=== PATIENT | male | born 1980 | race Caucasian/White ===

== ENCOUNTER 2018-07-30 04:40 | Inpatient (IN) ==
[2018-07-22 17:03] LABS: Appearance,Urine CLEAR; Bacteria,Urine 0 /hpf (0); Bilirubin,Urine NEG (NEG); Color,Urine YELLOW; Glucose,Urine (UA) NEGATIVE (NEG); Leukocyte Esterase,Urine NEG /uL (NEG); Mucus,Urine FEW /hpf (0); Protein,Urine NEG (NEG); Specific Gravity,Urine 1.017 (1.000-1.035); Urine Blood 0.2 mg/dL (<0.03); Urine RBC 1 /hpf (0-1); Urine Squamous Epithelial Cell < 1 /hpf (0-4); Urine WBC 1 /hpf (0-4); Urobilinogen,Urine NEG (NEG)
[2018-07-22 17:51] LABS: Blood Urea Nitrogen 9 mg/dl (6-20)
[2018-07-22 17:54] LABS: Basophils # (Auto) 0 K/mcL (0.0-0.3); Basophils % (Auto) 0.5 % (0.0-2.0); Eosinophils # (Auto) 0.2 K/mcL (0.0-0.7); Eosinophils % (Auto) 3.3 % (0.0-7.0); Granulocytes % (Auto) 60.3 % (38.0-78.0); Lymphocytes % (Auto) 29.1 % (15.5-49.0); Mean Cell Volume 86.5 fL (80.0-100.0); Mean Corpuscular HGB Conc 32.2 g/dL (31.0-36.0); Monocytes # (Auto) 0.5 K/mcL (0.1-0.9); Monocytes % (Auto) 6.8 % (1.0-12.0); Platelet Count 232 K/mcL (140-440); RBC 5.63 M/mcL (4.50-5.90); Red Cell Distribution Width 13.9 % (11.5-14.5)
[2018-07-30] MEDS ORDERED: ceFAZolin 2 GM in DEXTROSE 5% IN WATER 50 ML IV SCH (07:00)
[2018-07-30] MEDS ORDERED: 0.9 % SODIUM CHLORIDE 9 ML, KETOROLAC 30 MG, ROPIVACAINE HCL/PF 49.5 ML, EPINEPHrine 0.... IJ SCH (07:00)
[2018-07-30] MEDS ORDERED: GENTAMICIN SULFATE 800 MG/20 ML VIAL IR ONE (07:01)
[2018-07-30] MEDS ORDERED: fentaNYL 100 MCG/2 ML VIAL IV ONE (07:30)
[2018-07-30] MEDS ORDERED: PROPOFOL 200 MG/20 ML VIAL IV ONE (07:30)
[2018-07-30] MEDS ORDERED: ONDANSETRON 4 MG/2 ML VIAL ONE (07:30)
[2018-07-30] MEDS ORDERED: KETOROLAC 30 MG/ML VIAL ONE (07:30)
[2018-07-30] MEDS ORDERED: DEXAMETHASONE 4 MG/ML VIAL ONE (07:30)
[2018-07-30] MEDS ORDERED: LIDOCAINE HCL/PF 100 MG/5 ML SYRINGE IV ONE (07:30)
[2018-07-30] MEDS ORDERED: MEPERIDINE 25 MG/ML SYRINGE IV PRN (09:27)
[2018-07-30] MEDS ORDERED: KETOROLAC 30 MG/ML VIAL IV PRN (09:27)
[2018-07-30] MEDS ORDERED: ONDANSETRON 4 MG/2 ML VIAL IV PRN ×2 (09:27→10:39)
[2018-07-30] MEDS ORDERED: NALOXONE HCL 0.4 MG/ML VIAL IV PRN (09:27)
[2018-07-30] MEDS ORDERED: FLUMAZENIL 0.1 MG/ML ML IV PRN (09:27)
[2018-07-30] MEDS ORDERED: HYDROmorphone 2 MG/ML VIAL IV PRN (09:27)
[2018-07-30] MEDS ORDERED: ACETAMINOPHEN 1,000 MG/100 ML BOTTLE IV ONE (09:27)
[2018-07-30] MEDS ORDERED: BENZOCAINE/MENTHOL 1 LOZENGE PO PRN ×2 (09:27→10:39)
[2018-07-30] MEDS ORDERED: METHOCARBAMOL 1,000 MG/10 ML VIAL IV PRN (09:27)
[2018-07-30] MEDS ORDERED: IPRATROPIUM/ALBUTEROL 3 ML AMPUL.NEB NEB PRN (09:27)
[2018-07-30] MEDS ORDERED: LACTATED RINGERS 250 ML IV PRN (09:27)
[2018-07-30] MEDS ORDERED: LACTATED RINGERS 1,000 ML IV SCH (09:30)
[2018-07-30] MEDS ORDERED: FLEETS ADULT ENEMA PR PRN (10:39)
[2018-07-30] MEDS ORDERED: BISACODYL 10 MG SUPP.RECT PR PRN (10:39)
[2018-07-30] MEDS ORDERED: POLYETHYLENE GLYCOL 3350 17 GM PACKET PO PRN (10:39)
[2018-07-30] MEDS ORDERED: MAGNESIUM HYDROXIDE 30 ML ORAL.SUSP PO PRN (10:39)
[2018-07-30] MEDS ORDERED: TRANEXAMIC ACID 1,000 MG/10 ML VIAL IV ONE (10:39)
[2018-07-30] MEDS ORDERED: 0.9 % SODIUM CHLORIDE 1,000 ML IV SCH (10:45)
--- NOTE | 2018-07-30 10:45 | Brief Operative Note ---
Date of procedure: 07/30/18 Pre-op diagnosis: prominent hardware left tibia, DJD l knee Post-op diagnosis: same (l snehal) Procedure: L TKR SABINE, hardware removal Grafts/Implants: Yes (triathlon knee) Anesthesia: GETA Complications: none Surgeon: Elliot Fgaan Social Media Director: Adrien Mead Estimated blood loss (cc): 250 Tourniquet Time (Minutes): 105 Specimens Removed/Pathology: none sent Condition: stable Disposition: PACU
[2018-07-30] MEDS: fentaNYL 100 MCG/2 ML VIAL IV PRN ×4 (11:26→11:32)
--- NOTE | 2018-07-30 11:34 | Operative Note ---
DATE OF OPERATION: 07/30/2018 PREOPERATIVE DIAGNOSES: 1. Painful hardware, left proximal tibia. 2. Degenerative joint disease, left knee. POSTOPERATIVE DIAGNOSES: 1. Painful hardware, left proximal tibia. 2. Degenerative joint disease, left knee. OPERATION: 1. Hardware removal, left tibia. 2. Total knee replacement SURGEON: Elliot Fagan MD SENIOR PHYSICAL THERAPIST: Adrien Mead PA-C. ANESTHESIA: General. ESTIMATED BLOOD LOSS: 250 mL TOURNIQUET TIME: 105 minutes. SUMMARY OF PROCEDURE: General anesthesia was attained. The left leg was prepped and draped. The hardware removal was done without tourniquet. A midline incision was made from the tibia to the quadriceps. This was taken down sharply to the quadriceps and medial retinaculum. The hardware was palpable through the anterior musculature. The fascia over the anterior musculature was opened. The hardware was dissected out meticulously. Great care was taken to stay on the tibia posterolaterally to avoid injury to the peroneal nerve. The screws were located. They were removed throughout the area of the proximal tibia fixation. One screw was under the plate. After removal of the plate, this remaining screw was removed. There were a total of 8 screws. I rongeured all the prominent bone under the plate. At this point, we proceeded with stab incisions for the femoral and tibial array. The two pins were placed unicortically in each of the bones. The arrays were placed. The center of rotation of the hip was located by counter-clockwise rotation of the leg. A mid vastus approach was then used to expose the bone. This was done 2 cm above the quadriceps insertion. The medial retinaculum was split. The patella was mobilized laterally. Osteophytes were removed. The two check points were placed, one in the femur, one in the tibia. We then confirmed the hip cemter using the robot and the appropriate probe on the femur and then on the tibia. Exposure included resection of the meniscus and release of the ACL. I then used the robotic arm to confirm the bony anatomy of the femur and tibi, ,then made the tibial cut. This was followed by the posterior femoral cut, anterior femoral cut, notch cuts and then the distal cut of the femur. All the bone was removed. We then sized components in the tibia ended up sizing to a 5. The rotation of the tibia was maximized under the robot. A drill hole was made into the tibia and this was followed by the broach. We did use a stem on the tibia. A trial was then done of the femur which was a 5. After careful testing the best combination of stability and full motion was with a 10 mm insert. This was confirmed on the robotic program. Patella was everted. A measured resection was done of 10 mm bringing the remaining bone down to about 15. The patella sized to a 40. No touch test showed a lateral release was not needed. The bone surfaces were irrigated throughout. The knee was injected throughout with the multimodal injection for postoperative analgesia. The actual components were next cemented in. Excess cement was removed. The wound was then closed using two layers, the first layer was [id number] sutures of #2 FiberWire for the quadriceps and medial retinaculum. A second running 0 Maxon was used as well. The subcutaneous tissue was closed with buried 2-0 Monocryl and the skin was closed throughout as well as in the stab incisions with hiram. A sterile compressive dressing was applied. Prior to complete closure, the tourniquet was let down. All bleeding points were coagulated. ESTIMATED BLOOD LOSS: 250 mL. TOURNIQUET TIME: 105 minutes. The patient awoke without difficulty. He was taken to the recovery room in stable condition. The sponge and needle count was correct. [id number] Job ID: [id number] Doc ID: [id number] Elliot NICOLAS
--- NOTE | 2018-07-30 12:18 | XRay Report ---
CLINICAL INFORMATION: post op COMPARISON: None. FINDINGS: Total knee prosthesis is anatomically aligned. There is mild deformity of the posterior proximal tibial epiphysis/metaphysis which presumably is a malunified old fracture. Periarticular gas esophagus exhibits expected IMPRESSION: Negative Interpreted and Authenticated by: Abbe King 07/30/18
[2018-07-30] MEDS: 0.9 % SODIUM CHLORIDE 10 ML SYRINGE IV SCH ×3 (13:34→22:55)
[2018-07-30] MEDS: ceFAZolin 1 GM VIAL IV SCH ×2 (14:49→22:55)
[2018-07-30] MEDS: oxyCODONE HCL 5 MG TABLET PO PRN ×3 (15:21→22:54)
--- NOTE | 2018-07-30 16:03 | XRay Report ---
CLINICAL INFORMATION: L KNEE REPLACEMENT COMPARISON: None. FINDINGS: Total knee replacement is anatomically aligned. Mild deformity of the posterior tibial plateau and metaphysis suggesting malunified old fracture. Soft tissue swelling noted IMPRESSION: Negative Interpreted and Authenticated by: Abbe King 07/30/18
[2018-07-30] MEDS: SENNOSIDES 1 TABLET PO SCH (20:33)
[2018-07-30] MEDS: ASPIRIN 325 MG ENTERIC COATED TABLET PO SCH (20:33)
[2018-07-30] MEDS: DOCUSATE SODIUM 100 MG CAPSULE PO SCH (20:33)
[2018-07-31] MEDS: oxyCODONE HCL 5 MG TABLET PO PRN ×9 (02:34→22:54)
[2018-07-31] MEDS: 0.9 % SODIUM CHLORIDE 10 ML SYRINGE IV SCH ×4 (04:24→22:11)
[2018-07-31] MEDS ORDERED: METHOCARBAMOL 750 MG TABLET PO PRN (08:45)
[2018-07-31] MEDS: METHOCARBAMOL 1,000 MG/10 ML VIAL IV PRN ×2 (09:05→21:06)
[2018-07-31] MEDS: ASPIRIN 325 MG ENTERIC COATED TABLET PO SCH ×2 (09:06→21:07)
[2018-07-31] MEDS: ACETAMINOPHEN 1,000 MG/100 ML BOTTLE IV PRN ×3 (09:06→22:56)
[2018-07-31] MEDS: DOCUSATE SODIUM 100 MG CAPSULE PO SCH ×2 (09:06→21:07)
[2018-07-31] MEDS ORDERED: HYDROcodone/APAP 10/325MG TABLET PO PRN (13:55)
--- NOTE | 2018-07-31 13:55 | Orthopedic Progress Note ---
Subjective Patient information: Note initiated : 07/31/18 at 1:53 pm Service Date, if different from initiated Date: [] Patient: Fabian Miller 37 y/o M admitted on 07/30/18 for Left Robotic Total Knee Arthroplasty with. Chief Complaint: [] Principal diagnosis: Left TKA Interval history: Patient is doing well but did have some pain this morning. He is resting comfortably and participating in PT. Plans to discharge tomorrow. He denies any CP, calf pain, SOB, cough, or any other acute symptoms. Objective Vital signs: Vital Signs Temp Pulse Resp BP Pulse Ox 07/31/18 12:00 98.3 F 16 120/76 98 07/31/18 06:52 98.6 F 16 121/70 97 07/31/18 03:40 98.8 F 110 H 18 122/67 97 07/30/18 23:11 99.3 F H 07/30/18 23:10 98.5 F 116 H 12 127/72 96 07/30/18 19:26 98.2 F 118 H 18 147/73 97 07/30/18 16:00 98.3 F 109 H 16 123/69 98 07/30/18 14:25 97 H 111/79 97 Intake and Output 07/30/18 07/31/18 07/31/18 21:59 05:59 13:59 Intake Total 3154 1150 940 Output Total 2775 700 Balance 379 450 940 Intake: IV 554 100 Oral 2600 1150 840 Output: Urine Catheter Amount 1200 Straight 1200 Void Amount 1575 700 Other: Meal Dinner Lunch Percent of Meal Consumed 100% 100% Feeding Ability Independent Independent Urine Appearance Clear Clear Straight Clear Urine Color Pale Pale Straight Light Juani Urine Odor Straight Normal # Voids 1 Intake & Output: Intake & Output 07/30/18 07/31/18 07/31/18 21:59 05:59 13:59 Intake Total 3154 1150 940 Output Total 2775 700 Balance 379 450 940 Intake: IV 554 100 Oral 2600 1150 840 Output: Urine Catheter Amount 1200 Straight 1200 Void Amount 1575 700 Other: Meal Dinner Lunch Percent of Meal Consumed 100% 100% Feeding Ability Independent Independent Urine Appearance Clear Clear Straight Clear Urine Color Pale Pale Straight Light Juani Urine Odor Straight Normal # Voids 1 Incision: Yes healing Dressing: Yes clean, Yes dry, Yes intact Weight bearing status: full Neurological exam IM: Yes neurovascular intact Extremities exam IM: No calf tenderness, Yes Foot pink and warm - Labs CBC & BMP: 07/31/18 04:35 07/22/18 15:09 Labs: 07/31/18 07/22/18 04:35 15:09 Hgb 15.7 Hct 35.0 L 48.7 Assessment and Plan (1) Status post total knee replacement 1. Continue PT and oral pain medicine 2. Plan to discharge tomorrow 3. Aquacell dressing prior to discharge 4. Follow up in 2 weeks. Status: Acute
[2018-07-31] MEDS ORDERED: ASPIRIN 325 MG ENTERIC COATED TABLET PO SCH (21:00)
[2018-07-31] MEDS: SENNOSIDES 1 TABLET PO SCH (21:07)
[2018-08-01] MEDS: oxyCODONE HCL 5 MG TABLET PO PRN ×4 (00:59→08:43)
[2018-08-01] MEDS: 0.9 % SODIUM CHLORIDE 10 ML SYRINGE IV SCH (05:52)
[2018-08-01] MEDS: ACETAMINOPHEN 1,000 MG/100 ML BOTTLE IV PRN (06:54)
[2018-08-01] MEDS: METHOCARBAMOL 1,000 MG/10 ML VIAL IV PRN (06:55)
[2018-08-01] MEDS: ASPIRIN 325 MG ENTERIC COATED TABLET PO SCH (08:46)
[2018-08-01] MEDS: DOCUSATE SODIUM 100 MG CAPSULE PO SCH (08:46)
--- NOTE | 2018-08-01 08:46 | Orthopedic Progress Note ---
Subjective Patient information: Note initiated : 08/01/18 at 8:44 am Service Date, if different from initiated Date: [] Patient: Fabian Miller 37 y/o M admitted on 07/30/18 for Left Robotic Total Knee Arthroplasty with. Chief Complaint: [Eating well and neurovascular in tact pain is 2/5] Principal diagnosis: Left TKA Objective Vital signs: Vital Signs Temp Pulse Resp BP Pulse Ox 08/01/18 07:36 98.7 F 110 H 16 128/79 98 08/01/18 04:30 99.0 F 105 H 12 105/69 96 07/31/18 23:40 98.7 F 112 H 16 127/82 96 07/31/18 19:38 98.2 F 112 H 18 124/77 97 07/31/18 15:44 98 F 16 126/80 96 07/31/18 12:00 98.3 F 16 120/76 98 Intake and Output 07/31/18 08/01/18 08/01/18 21:59 05:59 13:59 Intake Total 2100 600 Balance 2100 600 Intake: IV 100 100 Oral 2000 500 Other: # Voids 1 # Bowel Movements 1 Weight 241 lb Intake & Output: Intake & Output 07/31/18 08/01/18 08/01/18 21:59 05:59 13:59 Intake Total 2100 600 Balance 2100 600 Weight 241 lb Intake: IV 100 100 Oral 2000 500 Other: # Voids 1 # Bowel Movements 1 Incision: Yes healing Incision clean and dry: Yes Dressing: Yes clean Weight bearing status: full Neurological exam IM: Yes oriented X3, Yes neurovascular intact Extremities exam IM: Yes Foot pink and warm, Yes neurovascular intact - [facility] Allied health notes reviewed: PT (D/C HOME today ambulation is excellent) - Labs CBC & BMP: 08/01/18 04:15 07/22/18 15:09 Labs: 08/01/18 07/31/18 07/22/18 04:15 04:35 15:09 Hgb 15.7 Hct 32.2 L 35.0 L 48.7
--- NOTE | 2018-08-01 08:49 | Discharge Summary ---
Ortho Discharge - TKA - Patient Instructions Diet: Regular Diet Total Knee Protocol: For Total Knee: Start ROM JUANJO with stationary bike or rocking chair. Work on gaining full extension of knee. Posterior dislocation precautions provided. Hip abductor strengthening and gait training instructions provided. Apply Cryocuff as instructed. Patient Education: Hydrocodone/Acetaminophen (By mouth), Aspirin (By mouth), Total Knee Replacement (DC) Additional Instructions: Discharge Instructions: Do the exercises at home that physical therapy gave you throughout the day. Weight bearing as tolerated. Wear comfortable clothing for physical therapy. You are scheduled to start physical therapy at [facility] ([phone]) on August 10 at 11:45 am, please arrive 15 minutes early for paperwork. Take your prescription, photo ID, insurance cards, and current medication list with you to your first physical therapy appointment. Take your prescription to filler picker any medication. You have the Aquacel Ag dressing, leave in place for 7 days then remove. If dressing becomes soiled (turns black), remove and use gauze 4x4 dressing and silvasorb ointment and change daily. Keep incision clean and dry. You may start showering on post op day #2. To avoid constipation while taking any narcotic pain medication, take an over the counter stool softener/laxative. Use your Cryocuff or ice packs as directed, on for 20 minutes at a time throughout the day. This and elevation will help with pain and swelling. Call your physician for fevers above 100.5 or pain not controlled by medication. Your prescriptions are with your discharge information. Some medications were electronically transmitted to your pharmacy of choice. Take Aspirin twice daily, for 30 days, as prescribed to prevent blood clots (see medication list). - Follow Up Plan Follow Up Appointments: Adrien Mead PA-C [Physician Employee Counselor] - 08/12/18 1:00 pm Disposition: Home, Self-Care Prognosis: Good Rehab Potential: Good I certify that the patient requires SNF services: No - Orders For Discharge Prescriptions: Aspirin [Ecotrin] 325 mg PO BID #60 tab.ec Methocarbamol [Robaxin] 750 mg IV Q6HP PRN #30 vial PRN Reason: Muscle Spasm Methocarbamol [Robaxin] 750 mg PO Q6HP PRN #40 tab PRN Reason: Muscle Spasm oxyCODONE HCL [Roxicodone] 1 - 2 tab PO Q2HP PRN #80 tab PRN Reason: Pain Level 3-6 Additional Discharge Orders: Physical Therapy at Discharge - TKA Location: None Selected
== END 2018-08-01 10:52 | disposition home or self-care (01) | DRG 470 ==
LOC: MEDSUR 04:40
PROVIDERS: ADMIT Orthopaedic Surgery Foot and Ankle Surgery; ATTEND Orthopaedic Surgery Foot and Ankle Surgery
PROC: SCOKNEE (2018-07-30 07:30)